=== PATIENT | female | born 1940 | race Caucasian/White ===

== ENCOUNTER 2016-10-21 05:32 | Inpatient (IN) | payer OTHER ==
[2016-10-11 11:15] LABS: HEMOGLOBIN 12.6 gm/dL (12.0-15.0); MCH 28.7 pg (26.0-34.0); MCHC 33.2 g/dL (28.0-37.0); MCV 86.5 fL (80.0-100.0); RBC 4.4 mil/uL (4.20-5.00); RDW 13.9 % (10.5-14.5)
[2016-10-11 11:16] LABS: URINE BILIRUBIN NEGATIVE (Negative); URINE BLOOD NEGATIVE (Negative); URINE COLOR YELLOW; URINE GLUCOSE-RANDOM* NEGATIVE (Negative); URINE KETONES NEGATIVE (Negative); URINE LEUKOCYTES-REFLEX NEGATIVE (Negative); URINE PROTEIN (DIPSTICK) NEGATIVE (Negative); URINE SPECIFIC GRAVITY 1.025 (1.003-1.035); URINE UROBILINOGEN 0.2 E.U./dl (0.2-1.0)
[2016-10-11 11:24] LABS: CALCIUM 9.2 mg/dL (8.5-10.1); CREATININE 0.9 mg/dL (0.6-1.0); POTASSIUM 4.1 mmol/L (3.5-5.1)
[~2016-10-21] VITALS: Ht 172.7 cm; Wt 70.8 kg
[2016-10-21] VITALS (9 sets, daily range): BP systolic 123–143; BP diastolic 65–87
--- NOTE | ~2016-10-21 | D ---
[facility] [place] [address] DISCHARGE SUMMARY Name: JOSELITO TREVINO Clemencia Room #: 412-P [facility] IN ..#: [id number] Admission: 10/21/16 Attend Phys: Hany Robles MD Discharge: 10/24/16 Date of : 36 Report #: [id number] THIS REPORT FOR: //name// [facility] DATE OF SERVICE: 10/24/2016 FINAL DIAGNOSES: End-stage degenerative arthritis, left hip. HISTORY OF PRESENT ILLNESS: This 76-year-old female remains active and independent. She has progressive degenerative arthritis involving the left hip. She has tried conservative measures without clear benefit. She and her family understands the treatment options and have elected to go ahead with left total hip arthroplasty. HOSPITAL COURSE: The patient was admitted and taken to the operating room on 10/21. She underwent left total hip arthroplasty which she tolerated well. Postoperatively, her course was largely unremarkable. She was able to advance from IV analgesics to oral analgesics. She had minimal drainage from her Hemovac, which was discontinued on that first postoperative day. She demonstrated satisfactory and improving range of motion, stability and strength involving the left hip. She participated with physical therapy and made good progress. She was started on anticoagulation using Xarelto, which she seems to have tolerated nicely. Her pain medications were moderate and tapered down to low-dose hydrocodone. She seemed to be safe and ready for discharge on 10/24. DISCHARGE MEDICATIONS: Include atorvastatin 10 mg daily, cortisone 180 mg daily, Tambocor 50 mg b.i.d., gabapentin 100 mg b.i.d., hydrocodone 5 mg q.4h. p.r.n. for pain. DISCHARGE INSTRUCTIONS: She will continue with assistance for ambulation with visiting therapy and then outpatient therapy. I have asked her to call, should there be any problems or questions. I will plan to see her back in my office at about 10 days post-surgery, and again in 2-3 weeks for followup and skin staple removal. <ELECTRONICALLY SIGNED> By: Hany Robles MD 11/01/16 [id number] Hany Robles MD /nt
--- NOTE | ~2016-10-21 | O ---
[facility] [place] [address] OPERATIVE REPORT Name: JOSELITO TREVINO Room #: 150-9 [facility] IN ..#: [id number] Admission: 10/21/16 Attend Phys: Hany Robles MD Discharge: Date of : 36 Report #: [id number] THIS REPORT FOR: //name// [facility] DATE OF SERVICE: 10/21/2016 PREOPERATIVE DIAGNOSIS: End-stage degenerative arthritis, left hip. POSTOPERATIVE DIAGNOSIS: End-stage degenerative arthritis, left hip. PROCEDURE: Left total hip arthroplasty. HISTORY: This 76-year-old female presents with chronic progressive left hip pain. She has had similar problems in other joints and underwent right total hip arthroplasty about 10 years ago and recently right total knee arthroplasty with good results. She now has progressive left hip pain and wants to go ahead with total hip arthroplasty as well. We discussed treatment options and the potential risks and benefits, she and her understand well and wish to proceed. DESCRIPTION OF PROCEDURE: The patient was taken to the operating room where she was placed under general anesthesia. Prophylactic intravenous antibiotics were administered. She was turned to the right lateral decubitus position. The left hip, thigh and leg were meticulously prepped and draped. A slightly curving posterolateral skin incision was made. This was carried through subcutaneous tissues and fascia exposing the posterior aspect of the hip joint. The short external rotators and capsule were taken down and tagged with several #1 Tevdek sutures. The hip was dislocated. Marked degenerative change on both the femoral head and acetabulum was noted. A femoral neck osteotomy was performed. The femoral canal was then opened with reamers and hand broaches. The [employer]ur-Fit hip system was utilized. The stem seemed best suited for a size 8 press-fit stem. Attention was then directed to the acetabulum, which was exposed and then reamed sequentially gradually advancing to a size 53 mm reamer. A 54 mm fenestrated cup was then inserted, positioning this in alignment with her true acetabulum, placing this in about 45 degrees of vertical and about 20 degrees of anteversion. It seated nicely and appeared to be secure. Two cancellous screws were placed through the fenestrations in the shell extending up into periacetabular bone with good purchase. A 36-mm polyethylene insert was then applied, placing a 10-degree ledesma at about the 9 o'clock posterior position. This was snapped into place and it seated nicely. The trial stem was reinserted and a trial reduction was performed. The hip seemed to be best suited for a lateral offset neck angle and a +5 mm neck length. This resulted in satisfactory alignment, good range of motion, and good hip stability. The trial stem was removed and the permanent [employer]-Fit size [address] [address] OPERATIVE REPORT Name: JOSELITO TREVINO Room #: 150-9 [facility] IN .R.#: [id number] Admission: 10/21/16 Attend Phys: Hany Robles MD Discharge: Date of : 36 Report #: [id number] stem was inserted. This was positioned in about 15-20 degrees of anteversion. It seated nicely and appeared to be secure. A 36-mm stainless steel head with a +5 mm neck length was then tapped on to the Jerome taper. The hip was reduced. Alignment, range of motion, stability and leg length were assessed and felt to be satisfactory. The wound was copiously irrigated. Good hemostasis was established. The short external rotators and capsule were repaired back to bone using the #1 Tevdek sutures placed through small drill holes in the greater trochanter. This resulted in excellent additional hip stability. A single Hemovac was left in the wound exiting through a separate stab incision. The fascia was closed with multiple #1 Vicryl sutures. The subcutaneous tissues were closed with 0 Monocryl. The skin was closed with skin saqib. A sterile dressing was applied. The patient was awakened and returned to recovery room in good condition. <ELECTRONICALLY SIGNED> By: Hany Robles MD 10/21/16 1302 [id number] Hany Robles MD /nt
[~2016-10-21 05:32] MED LIST: ASPIRIN325 PO; CARDIZEM CD180 MG PO; CO Q-10 PO; FIBER CAPSULES PO; FLECAINIDE ACET50 M1 PO; GABAPENTIN 100100 MG PO; GLUCOSAMINE-CH1 EAC8 PO; LIPITOR10 MG PO; MULTI-VITAMIN1 EAC5 PO; NIGHTTIME SLEEP25 M1 PO; VITAMIN D2000 UNIT PO
[2016-10-21] MEDS ORDERED: OXYCONTIN10 M1 PO (09:38)
[2016-10-22] VITALS (7 sets, daily range): BP systolic 78–127; BP diastolic 43–69
[2016-10-22 04:12] LABS: HEMATOCRIT 32.5 % (37.0-47.0); HEMOGLOBIN 10.8 gm/dL (12.0-15.0); MCH 28.6 pg (26.0-34.0); MCHC 33.1 g/dL (28.0-37.0); MCV 86.3 fL (80.0-100.0); RBC 3.77 mil/uL (4.20-5.00); RDW 13.3 % (10.5-14.5)
[2016-10-23 03:24] VITALS: BP 115/59
[2016-10-23 04:54] LABS: HEMATOCRIT 29.8 % (37.0-47.0); HEMOGLOBIN 10.1 gm/dL (12.0-15.0); MCH 29.2 pg (26.0-34.0); MCHC 33.8 g/dL (28.0-37.0); MCV 86.5 fL (80.0-100.0); RBC 3.45 mil/uL (4.20-5.00); RDW 13.6 % (10.5-14.5); WBC 9.9 thou/uL (4.0-11.0)
[2016-10-23 08:00] VITALS: BP 115/58
[2016-10-23 17:05] VITALS: BP 112/63
[2016-10-23 19:20] VITALS: BP 108/59
[2016-10-24 03:52] LABS: HEMATOCRIT 27.8 % (37.0-47.0); HEMOGLOBIN 9.4 gm/dL (12.0-15.0); MCH 29.1 pg (26.0-34.0); MCHC 33.8 g/dL (28.0-37.0); MCV 86.1 fL (80.0-100.0); RBC 3.23 mil/uL (4.20-5.00); RDW 13.9 % (10.5-14.5); WBC 8.9 thou/uL (4.0-11.0)
[2016-10-24 05:35] VITALS: BP 119/61
[2016-10-24 09:08] VITALS: BP 123/60
[2016-10-24 10:15] VITALS: BP 127/69
[2016-10-25 13:18] VITALS: BP 127/69
== END 2016-10-24 14:34 | disposition home health service (06) | DRG 470 ==
LOC: 4N 05:32 → TBA 05:32 → PRE 06:12 → 4N 13:27
PROVIDERS: Orthopaedic Surgery
PROC: 0SRB0JA Replacement of Left Hip Joint with Synthetic Substitute, Uncemented, Open Approach (ICD-10-PCS; principal; 2016-10-21)
DX: M16.12 Unilateral primary osteoarthritis, left hip (principal); Z96.651 Presence of right artificial knee joint; Z96.641 Presence of right artificial hip joint; I48.91 Unspecified atrial fibrillation; E78.00 Pure hypercholesterolemia, unspecified; I10 Essential (primary) hypertension; I95.1 Orthostatic hypotension; Z88.1 Allergy status to other antibiotic agents; Z85.3 Personal history of malignant neoplasm of breast; Z90.12 Acquired absence of left breast and nipple; Z90.49 Acquired absence of other specified parts of digestive tract; Z87.891 Personal history of nicotine dependence
CPT/HCPCS: 10790; 50010; 50101; 50382; 50414; 51412; 51771; 53000; 55388; 56521; 56525; 56527; 62110; 62900; 70005